=== PATIENT | male | born 1950 | race Caucasian/White ===

== ENCOUNTER 2019-02-14 08:01 | Observation (INO) | payer OTHER ==
[2019-02-14] VITALS (12 sets, daily range): BP systolic 135–158; BP diastolic 60–96
[~2019-02-14] VITALS: Ht 177.8 cm; Wt 82.6 kg
[2019-02-14] MEDS ORDERED: METOPROLOL TART25 MG PO (08:44)
[2019-02-14] MEDS ORDERED: PLAVIX 75 MG TA75 M1 PO (08:44)
[2019-02-14] MEDS ORDERED: PROTONIX40 M1 PO (08:45)
[2019-02-14] MEDS ORDERED: CRESTOR10 MG PO (08:45)
[2019-02-14] MEDS ORDERED: ZOLOFT50 MG PO (08:46)
[2019-02-14] MEDS ORDERED: COENZYME Q10100 MG PO (08:49)
[2019-02-14] MEDS ORDERED: IRON325 PO (08:49)
[2019-02-14] MEDS ORDERED: FISH OIL 1,001000 M2 PO (08:49)
[2019-02-14] MEDS ORDERED: VITAMIN B-121000 MCG PO (08:50)
--- NOTE | 2019-02-14 13:44 | EKG ---
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
--- NOTE | 2019-02-14 13:47 | EKG ---
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
[2019-02-14] MEDS ORDERED: EFFIENT10 MG PO (15:26)
[2019-02-14] MEDS ORDERED: ASPIR 8181 MG PO (15:26)
[2019-02-14] MEDS ORDERED: NITROGLYCERIN0.4 MG SUBLING (15:26)
--- NOTE | 2019-02-14 18:05 | NUR ---
PT CARE ASSUMED APPROX 1315. PT ADMITTED POST CATH. PT ARRIVED TO UNIT WITH . FAMILY AT BEDSIDE AT THIS TIME. PT ALERT AND ORIENTED X4. DENIES PAIN AND SOA. POST CATH VS ARE WNL. RIGHT GROIN POST CATH SITE IS BRUISED POST HEMATOMA RESOLVED IN CORK INSULATOR. GROIN IS FREE OF HEMATOMA AT THIS TIME. DSG C/D/I. PT COMPLIED WITH POST CATH B/R. UP AT THIS TIME. PT HAS STEADY GAIT BUT NURSING HAS REQUESTED THIS PT CALL FOR ASSISTANCE TO AMBULATE UNTIL IVF IS STOPPED. PT AGREEABLE. NO DISTRESS NOTED.
[2019-02-15 00:59] VITALS: BP 133/67
--- NOTE | 2019-02-15 03:05 | NUR ---
PT UP ADLIB IN ROOM POST C. CATH WITH OUT DIFFICULTY, NO C/O PAIN, RIGHT GROIN CDI WITH BRUISED GROIN, VSS, HR SB, PT HOPING TO GO HOME IN AM. WILL CON'T TO MONITOR PER PPOC.
[2019-02-15 05:32] VITALS: BP 140/74
[2019-02-15 07:21] VITALS: BP 129/68
--- NOTE | 2019-02-15 08:14 | NUR ---
pt resting on and off thru the noc with bipap, prn pain med given for non cardiac chest pain, mar with drk deepthi urine, remains bed rest until pt eval. will con't to monitor per ppoc.
[2019-02-15 09:32] VITALS: BP 129/68
--- NOTE | 2019-02-15 10:25 | NUR ---
PT CARE ASSUMED APPROX 0700. PT ALERT AND ORIENTED X4. DENIES PAIN AND SOA. VSS. RIGHT GROIN POST CATH SITE C/D/I AND FREE OF HEMATOMA. SIGNIFICANT AMOUNT OF BRUISING NOTED. NO BRUIT NOTED. DR VEGA ASSESSED PT THIS AM AND GROIN SITE. PT IS BEING DISCHARGED AT THIS TIME. DISCHARGE PAPERWORK REVIEWED WITH PT AND SPOUSE. ALL DENY QUESTIONS AND CONCERNS REGARDING POST CATH SITE CARE, MEDS, ACTIVITY RESTRICTIONS, DIET, F/U APPTS AND GENERAL POST HOSPITAL CARE. IV OUT, TELE BOX. HOSPITAL STAFF ESCORTED PT OUT VIA WHEELCHAIR.
--- NOTE | 2019-02-19 16:27 | CATHLAB ---
[facility] [place] [address] INVASIVE PROCEDURE REPORT Name: SERGIO GUTIERREZ Room #: 217-P [facility] IN ..#: [id number] Admission: 02/14/19 Attend Phys: Kingston Flores Discharge: 02/15/19 Date of : 54 Date of Service: 02/19/19 1627 Report #: [id number] THIS REPORT FOR: //name// APPROVED REPORT Study performed: 02/14/2019 09:14:33 Patient Details The patient is a 68 year-old male Event Personnel Kingston Ray Vinyl Dipper, Silvestre Gill RN RN, Derrick Merritt RTR Scrub, James Reed Monitor, Jayda Reed RTR Monitor Procedures Performed Left Heart Cath w/or w/o Coronaries [id number] [facility] VIKTORIYA Place w/wo Plasty Single DIAG 119156 Hemostasis w/ Mynx, supervision of conscious sedation Indication Positive stress test, Chest pain Procedure Narrative The Right Groin^ was infiltrated with 2% Lidocaine subcutaneous anesthesia. A PINNACLE 4FR Sheath #[id number] sheath was inserted into the RFA 4 fr^. Coronary angiography was performed using coronary diagnostic catheters. The right coronary system was accessed and visualized with a JR4 catheter. The left coronary system was accessed and visualized with a JL4 catheter. The left ventricle was accessed and visualized with a Pigtail catheter. Left ventricular/Aortic Valve gradient assessed via catheter pullback. Closure device was deployed with a Fr MYNX CONTROL 6F/7F #[id number]. The patient tolerated the procedure well and there were no complications associated with the procedure. There was no hematoma. Intraoperative Conscious Sedation Sedation start time: 931 Case end Time: 1028 Versed 4 mg Fluoro Time: 18.27 minutes Dose: DAP 30845.00 cGycm2 1910 mGy Contrast Type and Amount: Omnipaque 185 ml [facility] [place] [address] INVASIVE PROCEDURE REPORT Name: SERGIO GUTIERREZ Room #: 217-P [facility] IN ..#: [id number] Admission: 02/14/19 Attend Phys: Kingston Flores Discharge: 02/15/19 Date of : 54 Date of Service: 02/19/19 1627 Report #: [id number] Coronary Angiography The patient's coronary anatomy is right dominant. Diagnostic Cath Left Main Moderate caliber vessel is superior origin bifurcates the left anterior descending left circumflex. Free of high-grade disease LAD Moderate caliber vessel which courses in the anterior interventricular sulcus rapidly tapering towards the apex is a type II vessel. First diagonal branch has a high-grade proximal lesion in a vessel that appears to be between 2.5 and 2 mm in diameter. The LAD proper then terminates at the apex is small bifurcating vessel Diagonal 1 Small-caliber vessel which has a high-grade eccentric lesion proximally. I then reconstitutes itself in courses along the anterolateral wall for a significant length. Circumflex Small-caliber vessel which has an early bifurcation into 2 marginal branches and terminates as a string-like vessel beyond those branches prior to reaching the posterior crux of the heart. OM1 Small-caliber vessel with an eccentric 40-50% lesion proximally. It does not appear to be flow limiting as a vessel courses on the lateral aspect of the heart. OM2 Ocular vessel without significant obstructive lesions and only luminal irregularities noted Right Coronary Large-caliber vessel of normal origin and ectatic size with luminal irregularities proximally of less than 30%. He continues to the crux of the heart where a posterior descending artery arises and then continues on the posterior circulation. There are luminal irregularities but no high-grade lesions in this vessel. R PDA Moderate caliber vessel which has an eccentric lesion in its proximal third. This appears to be 60% and no stent most and does not appear to limit flow. The vessel is dilated post lesion with a size mismatch between the proximal and distal segments of the affected vessel part. Left Ventriculography Left Ventriculography was not performed. Hemodynamics The aortic pressure is 152/82 mmHg with a mean of 65 mmHg. The left ventricular pressure is 160/11 mmHg with a mean of mmHg. The left ventricular end diastolic pressure is 50 mmHg. PCI Technique In view of the abnormal perfusion scan lesion being in the [facility] [address] [place] [address] INVASIVE PROCEDURE REPORT Name: SERGIO GUTIERREZ Room #: 217-P [facility] M.R.#: [id number] Admission: 02/14/19 Attend Phys: Kingston Flores Discharge: 02/15/19 Date of : 54 Date of Service: 02/19/19 1627 Report #: [id number] distribution of that no branch was felt this was appropriate to proceed initially with intervention. System was exchanged for a 6 Vietnamese system and a standard Kasia left guide was engaged. Wire was then after some manipulation advanced across the lesion. Primary stenting was attempted which was unsuccessful and the stent was removed. A 2.0 mm balloon was then utilized to dilate the proximal portion. This resulted in a improved blood flow but with a approximate 25-30% residual. At this point in time the balloon was removed and the stent was then repositioned and available to be placed across the lesion was dilated. The stent is a 2.0 x 8 mm [employer] VIKTORIYA stent. This was dilated to 16 genie. Post dilatation the vessel was patent was widely patent without any loss of side branches distal embolization or intraluminal thrombus noted. No complications were identified. The system was then removed after final plaster were obtained and Effient was given in the LAD. The puncture site was then closed utilizing a minx device without complications PCI Technique Lesion Anticoagulation was achieved with Angiomax. Percutaneous coronary intervention was performed on the first diagnonal branch segment. A LAUNCHER 6FR JL4 #[id number] Guide Catheter was used to engage the ostium. A Luge Wire (J) .014 X 182CM #[id number] Interventional Guidewire was used to cross the lesion. BALLOON DILATION A Balloon catheter Sprinter OTW 2.0 x 6 #[id number] was inserted and inflated up to 8.00atm for 28seconds. A second 2.0 x 10 Sprinter OTW was used @ 10ATM for 28SEC, Second infllation @ 8ATM for 90SEC STENT DEPLOYMENT A stent RESOLUTE REMI OTW 2.0 X 8 #[id number] was inserted and inflated up to 12.00atm for 10seconds. Additional Inflation: 14.00atm for 7seconds. Conclusion 1. Coronary artery disease 2 vessel including a moderate posterior descending artery and a severe first diagonal branch 2. Normal hemodynamics 3. Successful percutaneous revascularization and stenting with a 2.0 mm x 8 mm length Medtronic VIKTORIYA stent dilated to 16 genie Recommendations Cardiac Risk Reduction Program The patient will proceed with aspirin and prasugrel treatment for 9-12 months per standard protocol. In view of nonobstructive coronary disease beta-blockade and optimization of coronary artery disease [facility] [address] [place] [address] INVASIVE PROCEDURE REPORT Name: SERGIO GUTIERREZ Room #: 217-P [facility] DonnaR.#: [id number] Admission: 02/14/19 Attend Phys: Kingston Flores Discharge: 02/15/19 Date of : 54 Date of Service: 02/19/19 1627 Report #: [id number] medical management will be performed Medications Administered Prasugrel <ELECTRONICALLY SIGNED> By: Kingston Ray MD 02/19/19 1627 26 Kingston Ray MD /INF
== END 2019-02-15 10:31 | disposition home or self-care (01) ==
LOC: CATH 08:01 → 2N 10:06 → CATH 10:16 → 2N 02-15 10:31
PROVIDERS: ADMIT Internal Medicine
DX: I25.10 Atherosclerotic heart disease of native coronary artery without angina pectoris (principal); I10 Essential (primary) hypertension; E78.5 Hyperlipidemia, unspecified; Z79.899 Other long term (current) drug therapy

== ENCOUNTER 2019-02-21 12:45 | Inpatient (IN) | payer OTHER ==
[~2019-02-21 12:45] MED LIST: ASPIR 8181 MG PO; COENZYME Q10100 MG PO; CRESTOR10 MG PO; EFFIENT10 MG PO; FISH OIL 1,001000 M2 PO; IRON325 PO; METOPROLOL TART25 MG PO; NITROGLYCERIN0.4 MG SUBLING; PLAVIX 75 MG TA75 M1 PO; PROTONIX40 M1 PO; VITAMIN B-121000 MCG PO; ZOLOFT50 MG PO
--- NOTE | 2019-02-21 15:25 | NUR ---
WAS ALERTED TO HAVING A PT IN THIS ROOM, NO REPORT GIVEN YET CALLED AND SPOKE WITH A NURSE FROM PACU TO REC REPORT. DISCOVERED ANOTHER RN HAD VIEWED HIS RIGHT GROIN SITE, BRUISING, BUMPY SITE WHICH HAS BEEN HIS NORM. DRESSING DRY UPON ADMISSION, SMALL SPOT OF FAINT BLOOD, SHOWED RECEIVING RN, NACHO, AND SHE SAID TO MERELY [place] POINT IT AND KEEP AN EYE ON IT. OVERHEARD PHYSICIAN STATE BEDREST FOR 6H, WILL REVIEW ORDERS AND FOLLOW. PT IS A&0X4, FAMILY ACCOMPANYING, VS BEING TAKEN EVERY 15, PULSES WNL, PT IS AN ATHELETE. TELE PLACED, HR 40-50S, VS WNL FOR PT; HE'S A BIT RESTLESS YET KNOWS HE CAN MOVE LEFT LEG AND HE IS STRETCHING IT. ENCOURAGED HIM TO USE CALL LIGHT FOR ANY NEEDS
--- NOTE | 2019-02-21 15:49 | NUR ---
SEE VITAL SIGNS, PT HAD CARDIAC CATH RIGHT GROIN SITE LAST SUNDAY, SEVEN DAYS AGO. DID WELL UNTIL LAST NIGHT HAD US DONE OF SITE DUE TO SWELLING/BRUISING LAST FEW DAYS, HARDNESS, US SHOWS PSEUDOHEMATOMA, SITE W/DRESSING WITH SCANT FAINT BLEEDING, LINE DRAWN, PRESSURE HELD 30 MINUTES BEFORE PT'S ARRIVAL PER NURSE IN PACU AND PT'S SPOUSE. VS BEING TAKEN EVERY 15 MIN, NO C/O PAIN JUST UNCOMFORTABLE WITH HAVING TO LIE STILL, PT AWARE OF RESTRICTIONS AND ENCOURAGED TO HANG IN THERE. FAMILY ACCOMPANIES. WILL ENTER VS, PULSE CHECKS DONE EVERY 15 MINUTE WITH EXTREMITIES COOL, PULSES EXCELLENT, AND SITE CHECKED, REMAINS THE SAME WITH THE BRUISING, UNEVEN TERRAIN. WILL CONTINUE TO MONITOR.
[2019-02-21 16:09] VITALS: BP 143/73
--- NOTE | 2019-02-21 17:41 | NUR ---
PT'S GROIN SITE HAS INCREASED MOISTURE, NOT BLOOD, CONTACTED CARDIOLOGY AND WAS ADVISED TO CONTINUE TO MONITOR AND SHOULD IT INCREASE, HOLD PRESSURE. WILL CONTINUE TO MONITOR, PT IN GOOD SPIRITS, FAMILY STILL AT BEDSIDE, PT IS FOLLOWING RESTRICTIONS. MENTIONS SAME PROCEDURE AT [facility] YEARS AGO AND HE STATES HE'S ALWAYS HAD TO HAVE LONG PRESSURE HELD FOR EVENTS.
[2019-02-21 20:40] VITALS: BP 103/59
[2019-02-22 00:22] VITALS: BP 131/53
[2019-02-22 04:20] VITALS: BP 112/49
[2019-02-22 04:55] VITALS: BP 112/49
[2019-02-22 06:02] LABS: HEMATOCRIT 39.2 % (42.0-52.0); HEMOGLOBIN 13.6 gm/dL (14.0-18.0); MCH 33.9 pg (26.0-34.0); MCHC 34.7 g/dL (28.0-37.0); MCV 97.6 fL (80.0-100.0); RBC 4.02 mil/uL (4.50-6.00); RDW 13.1 % (10.5-14.5); WBC 9.1 thou/uL (4.0-11.0)
[2019-02-22 07:05] VITALS: BP 118/59
[2019-02-22 11:25] VITALS: BP 114/66
[2019-02-22 11:36] VITALS: BP 118/59
--- NOTE | 2019-02-22 12:45 | NUR ---
ASSUMED CARE TO PT AT SHIFT CHANGE. PT A&OX4. VSS. NO BLEEDING AT CATH SITE DURING FREQUENT CHECKS. ASSESSEMENT CHARTED. MED ADMINISTERED PER SEP. AT BEDSIDE. ULTRASOUND AT BEDSIDE SHOWED SITE WAS THROMBOSED. DISCHARGE ORDERS COMPLETED. IV AND TELE D/C. PT WALKED OUT WITH .
== END 2019-02-22 12:03 | disposition home or self-care (01) | DRG 301 ==
LOC: ULTRA 12:45 → 2N 15:15
PROVIDERS: ADMIT Internal Medicine
PROC: 2W1 Placement, Anatomical Regions, Compression (ICD-10-PCS; principal; 2019-02-21)
DX: I72.4 Aneurysm of artery of lower extremity (principal); I25.10 Atherosclerotic heart disease of native coronary artery without angina pectoris; E78.5 Hyperlipidemia, unspecified; I10 Essential (primary) hypertension; E78.00 Pure hypercholesterolemia, unspecified; Z79.899 Other long term (current) drug therapy
CPT/HCPCS: 10081

== ENCOUNTER 2019-02-22 23:16 | Emergency (ER) | payer OTHER ==
[2019-02-23 00:02] LABS: HEMATOCRIT 42.1 % (42.0-52.0); HEMOGLOBIN 14.5 gm/dL (14.0-18.0); MCH 33.7 pg (26.0-34.0); MCHC 34.5 g/dL (28.0-37.0); MCV 97.7 fL (80.0-100.0); RBC 4.31 mil/uL (4.50-6.00); RDW 13.4 % (10.5-14.5); WBC 8.8 thou/uL (4.0-11.0)
[2019-02-23 03:23] VITALS: BP 166/72
== END 2019-02-23 03:24 | disposition home or self-care (01) ==
LOC: ER 23:16
PROVIDERS: Emergency Medicine
DX: T82.837A Hemorrhage due to cardiac prosthetic devices, implants and grafts, initial encounter (principal); I10 Essential (primary) hypertension; E78.5 Hyperlipidemia, unspecified; K21.9 Gastro-esophageal reflux disease without esophagitis; Z98.890 Other specified postprocedural states; Z88.5 Allergy status to narcotic agent

== ENCOUNTER → 2019-02-25 | Outpatient (CLI) | payer OTHER | LOC: RAD 14:50 | DX: I97.89 Other postprocedural complications and disorders of the circulatory system, not elsewhere classified (principal); R03.0 Elevated blood-pressure reading, without diagnosis of hypertension ==

== ENCOUNTER → 2019-09-15 | Outpatient (CLI) | payer OTHER | LOC: SJCVC 10:06 | DX: R00.1 Bradycardia, unspecified (principal); I25.10 Atherosclerotic heart disease of native coronary artery without angina pectoris; E78.5 Hyperlipidemia, unspecified; I10 Essential (primary) hypertension ==

== ENCOUNTER → 2021-06-23 | Outpatient (CLI) | payer OTHER, MEDICARE | LOC: SJCVCIMAG 08:53 | PROVIDERS: ATTEND Internal Medicine | DX: I11.9 Hypertensive heart disease without heart failure (principal); I25.10 Atherosclerotic heart disease of native coronary artery without angina pectoris; I10 Essential (primary) hypertension; E78.5 Hyperlipidemia, unspecified; E11.9 Type 2 diabetes mellitus without complications; Z82.49 Family history of ischemic heart disease and other diseases of the circulatory system; Z88.8 Allergy status to other drugs, medicaments and biological substances; Z79.82 Long term (current) use of aspirin; Z79.899 Other long term (current) drug therapy ==